=== PATIENT | male | born 1990 | race Two or more races ===

== ENCOUNTER 2021-06-29 20:11 | Emergency (ER) | payer MEDICAID ==
[~2021-06-29] VITALS: Ht 185.4 cm; Wt 113.4 kg
[2021-06-29 20:40] VITALS: BP 124/60
[2021-06-29] MEDS ORDERED: AMOXICILLIN/CLAVUL 875 MG TAB PO ONE (21:15)
[2021-06-29] MEDS ORDERED: BACITRACIN TOP OINT 1 UD PKG TOP ONE (21:30)
[2021-06-29] MEDS ORDERED: TETANUS-DIPTH-ACEL PERTUSSIS 0.5ML SYR Tdap IM ONE (21:30)
[2021-06-29] MEDS ORDERED: AMOXTAB PO (21:53)
== END 2021-06-29 22:48 | disposition home or self-care (01) ==
LOC: ER 20:11 → EDBD 20:11 → ER 22:15
DX: S61.012A Laceration without foreign body of left thumb without damage to nail, initial encounter (principal); W54.0XXA Bitten by dog, initial encounter; Y93.89 Activity, other specified; Y92.89 Other specified places as the place of occurrence of the external cause; Y99.8 Other external cause status
CPT/HCPCS: 12001; 73140

== ENCOUNTER 2021-07-15 20:14 | Emergency (ER) | payer MEDICAID ==
[~2021-07-15] VITALS: Ht 185.4 cm; Wt 115.7 kg
[2021-07-15 20:15] VITALS: BP 115/73
[2021-07-15 22:32] LABS: Basophils # (auto) 0.1 10 ^3/uL (0-0.2); Basophils % (auto) 0.8 % (0.0-2.0); Eosinophils # (auto) 0.2 10 ^3/uL (0-0.8); Eosinophils % (auto) 2.3 % (0.0-7.0); Hematocrit 45.9 % (41.0-53.0); Lymphocytes # (auto) 2.3 10 ^3/uL (0.4-5.4); Lymphocytes % (auto) 33.7 % (10.0-50.0); Mean Corpuscular Hemoglobin 29.2 pg (28.0-32.0); Mean Corpuscular Hgb Conc. 34.9 g/dL (32.0-36.0); Mean Corpuscular Volume 83.8 fL (80.0-100.0); Monocytes # (auto) 0.4 10 ^3/uL (0-1.3); Monocytes % (auto) 6.1 % (0.0-12.0); Neutrophils % (auto) 57.1 % (37.0-80.0); Nucleated Red Blood Cells % 0.1 %; Red Blood Cells 5.48 10^6/uL (4.5-5.90); Red Cell Distribution Width 13.8 % (11.8-14.3); White Blood Cell 6.9 10^3/uL (4.4-10.8)
[2021-07-15 22:50] LABS: Albumin 3.9 g/dL (3.4-5.0); BUN/Creatinine Ratio 15.8; Potassium 4.5 mmol/L (3.5-5.1)
[2021-07-15 22:53] LABS: Bilirubin, Total 0.3 mg/dL (0.2-1.0); Total Protein 7.3 g/dL (6.4-8.2)
[2021-07-15] MEDS ORDERED: AZIT250T9 PO (23:40)
== END 2021-07-15 23:31 | disposition left against medical advice (07) ==
LOC: ER 20:14
DX: R07.89 Other chest pain (principal)
CPT/HCPCS: 36415; 71046; 80053; 84484; 85025; 93005

== ENCOUNTER 2021-12-29 19:51 | Emergency (ER) | payer MEDICAID ==
[~2021-12-29] VITALS: Ht 193 cm; Wt 113.5 kg
[~2021-12-29 19:51] MED LIST: AZIT250T9 PO
[2021-12-29] MEDS ORDERED: IOHEXOL 350 MG/ML 100ML IJ ONE (20:12)
[2021-12-29 20:31] LABS: Basophils # (auto) 0 10 ^3/uL (0-0.2); Basophils % (auto) 0.3 % (0.0-2.0); Eosinophils # (auto) 0.2 10 ^3/uL (0-0.8); Eosinophils % (auto) 2.1 % (0.0-7.0); Hematocrit 45.3 % (41.0-53.0); Hemoglobin 15.3 g/dL (13.5-17.5); Lymphocytes # (auto) 1.6 10 ^3/uL (0.4-5.4); Lymphocytes % (auto) 20.7 % (10.0-50.0); Mean Corpuscular Hemoglobin 27.8 pg (28.0-32.0); Mean Corpuscular Hgb Conc. 33.6 g/dL (32.0-36.0); Mean Corpuscular Volume 82.7 fL (80.0-100.0); Monocytes # (auto) 0.6 10 ^3/uL (0-1.3); Monocytes % (auto) 8.1 % (0.0-12.0); Neutrophils # (auto) 5.2 10 ^3/uL (1.6-8.6); Neutrophils % (auto) 68.8 % (37.0-80.0); Red Blood Cells 5.48 10^6/uL (4.5-5.90); Red Cell Distribution Width 13.8 % (11.8-14.3); White Blood Cell 7.5 10^3/uL (4.4-10.8)
[2021-12-29 20:49] LABS: Albumin 3.3 g/dL (3.4-5.0); BUN/Creatinine Ratio 16.3; Calcium 8.1 mg/dL (8.5-10.1); Potassium 4.4 mmol/L (3.5-5.1)
[2021-12-29 20:52] LABS: Bilirubin, Total 0.2 mg/dL (0.2-1.0); Total Protein 7.3 g/dL (6.4-8.2)
[2021-12-30 02:15] VITALS: BP 117/75
[2021-12-30] MEDS ORDERED: CLINDAMYCIN HCL 150 MG CAP PO ONE (05:45)
[2021-12-30] MEDS ORDERED: OXYCODONE W/ ACETAMINOPHEN 5/325MG TABLET PO ONE (05:45)
== END 2021-12-30 06:56 | disposition home or self-care (01) ==
LOC: EDBD 19:51 → ER 19:51
DX: L03.312 Cellulitis of back [any part except buttock and flank] (principal); G89.18 Other acute postprocedural pain; R94.31 Abnormal electrocardiogram [ECG] [EKG]; Z20.822 Contact with and (suspected) exposure to COVID-19
CPT/HCPCS: 36415; 71045; 72132; 80053; 83605; 85025; 87426; 93005; 99285; Q9967

== ENCOUNTER 2024-09-21 01:25 | Emergency (ER) | payer MEDICAID ==
[~2024-09-21] VITALS: Ht 185.4 cm; Wt 125.9 kg
[~2024-09-21 01:25] MED LIST changes: +AZIT-43 PO; -AZIT250T9 PO
--- NOTE | 2024-09-21 01:46 | ED.PDOC ---
Back pain HPI HPI Comments 33-YEAR-OLD MALE PRESENTS TO THE ED CHIEF COMPLAINT LEFT ANKLE INJURY. PATIENT STATES AROUND 8:00 A.M. YESTERDAY HE WAS WALKING LOST HIS FOOTING AND TWISTED HIS LEFT ANKLE INWARD. COMPLAINING OF PRESSURE TYPE PAIN WORSE WITH AMBULATING SHARP IN NATURE 8/10 ON PAIN SCALE. CURRENTLY TAKING NORCO FOR CHRONIC PAIN STATES HELPED A LITTLE. DENIES NUMBNESS WEAKNESS OR ANY OTHER KNOWN INJURY. Time Seen by MD: 01:28 Primary Care Provider: KEANU STEVENS Reviewed Notes: Nurses Notes, Medications, Allergies Allergies: Coded Allergies: NO KNOWN ALLERGIES (Unverified , 06/29/21) Home Meds Active Scripts Azithromycin (Azithromycin) 250 Mg Tab, 250 MG PO DAILY, #4 TAB Prov:GUANAKITO NUNN MD 07/15/21 Information Source: Patient Past Medical History PAST MEDICAL HISTORY: DM Surgical History: Denies all surgeries Family History Family History: Reviewed,noncontributory to illness Social History Smoker: Non-Smoker Alcohol: Denies ETOH Use Drugs: Denies Drug Use Lives In: Home Constitutional: denies: chills, diaphoresis, fatigue, fever, malaise, sweats, weakness, others EENTM: denies: blurred vision, double vision, ear bleeding, ear discharge, ear drainage, ear pain, ear ringing, eye pain, eye redness, hearing loss, mouth pain, mouth swelling, nasal discharge, nose bleeding, nose congestion, nose pain, photophobia, tearing, throat pain, throat swelling, voice changes, others Respiratory: denies: cough, hemoptysis, orthopnea, SOB at rest, shortness of breath, SOB with excertion, stridor, wheezing, others Cardiovascular: denies: chest pain, dizzy spells, diaphoresis, Dyspnea on exertion, edema, irregular heart beat, left arm pain, lightheadedness, palpitations, PND, syncope, others Gastrointestinal: denies: abdomen distended, abdominal pain, blood streaked bowels, constipated, diarrhea, dysphagia, difficulty swallowing, hematemesis, melena, nausea, poor appetite, poor fluid intake, rectal bleeding, rectal pain, vomiting, others Genitourinary: denies: burning, dysuria, flank pain, frequency, hematuria, incontinence, penile discharge, penile sore, pain, testicle pain, testicle swelling, urgency, others Neurological: denies: dizziness, fainting, headache, left sided numbness, left sided weakness, numbness, paresthesia, pre-existing deficit, right sided nu mbness, right sided weakness, seizure, speech problems, tingling, tremors, weakness, others Musculoskeletal: reports: joint pain, joint swelling; denies: back pain, gout, muscle pain, muscle stiffness, neck pain, others Integumetry: denies: bruises, change in color, change in hair/nails, dryness, laceration, lesions, lumps, rash, wounds, others Allergic/Immunocompromised: denies: Difficulty Healing, Frequent Infections, Hives, Itching, others Hematologic/Lymphatic: denies: anemia, blood clots, easy bleeding, easy bruising, swollen glands, others Endocrine: denies: excessive hunger, excessive sweating, excessive thirst, excessive urination, flushing, intolerance to cold, intolerance to heat, unexplained weight gain, unexplained weight loss, others Psychiatric: denies: anxiety, bipolar disorder, depression, hopeless, panic disorder, schizophrenia, sleepless, suicidal, others Physical Exam General Appearance: No Apparent Distress, Normal HEENT: Pharynx Normal Neck: Full Range of Motion, Non-Tender Respiratory: Lungs Clear, No Respiratory Distress, Normal Breath Sounds Cardiovascular: No Murmur, Normal Peripheral Pulses, Regular Rate/Rhythm Breast Exam: Deferred Gastrointestinal: Non Tender, Soft Genitalia: Deferred Pelvic: Deferred Rectal: Deferred Extremities: Normal capillary refill, Normal inspection, Normal range of motion, Non-tender, No pedal edema Musculoskeletal : Location: Left Extremity Location: Ankle (LATERAL ASPECT NOTED TRACE EDEMA STRENGTH SENSORY MOTION INTACT POSITIVE PEDAL PULSE NO NOTED ABRASIONS OR LACERATIONS.) Apperance: Normal Neurologic: Alert, No Motor Deficits, Normal Affect, Normal Mood, No Sensory Deficits Cerebellar Function: Normal Reflexes: Normal Skin: Dry, Normal Color, Warm Lymphatic: No Adenopathy Was a procedure done? Was a procedure done?: No Back Pain Differential Dx Differential Diagnosis: Fracture, Musculoskeletal Pain X-Ray, Labs, Meds, VS Vital Signs Date Time Temp Pulse Resp B/P (MAP) Pulse Ox O2 Delivery O2 Flow Rate FiO2 09/21/24 01:48 98.0 110 18 115/72 (86) 97 98.0 X-Ray, Labs, Meds, VS Comment PATIENT GIVEN TORADOL 60 MG IM REPORTS IMPROVEMENT IN PAIN AND FUNCTION REQUESTING DISCHARGE AT THIS TIME. ANKLE X-RAY SHOWS NO ACUTE FRACTURES OSSEOUS LESIONS OR DISLOCATIONS. LIKELY LEFT ANKLE SPRAIN. PATIENT PLACED IN STIRRUP SPLINT AND CRUTCHES. ADVISED ON RICE. SCRIPT TRIAL OF IBUPROFEN ADVISED TAKE MEDICATIONS PRESCRIBED SIDE EFFECTS DISCUSSED. HE IS TO FOLLOW UP WITH HIS PCP IN 2-3 DAYS NECESSARY CONSIDER FURTHER IMAGING SUCH REPEAT X-RAY OR MRI IF SYMPTOMS PERSIST. ER RETURN PRECAUTIONS GIVEN PATIENT INDICATES UNDERSTANDING AND AGREES WITH DISCHARGE PLAN OF CARE. Time of 1ST Reevaluation: 01:43 Reevaluation 1ST: Unchanged Time of 2ND Reevaluation: 03:06 Reevaluation 2ND: Improved Patient Education/Counseling: Diagnosis, Treatment, Prognosis, Need For Follow Up Family Education/Counseling: Diagnosis, Treatment, Prognosis, Need For Follow Up SEPSIS Sepsis Screen Physician Orders L Ankle 3 View (09/21/24 01:46) Apply Ice To Affected Area (09/21/24 01:48) Vital Signs Date Time Temp Pulse Resp B/P (MAP) Pulse Ox O2 Delivery O2 Flow Rate FiO2 09/21/24 01:48 98.0 110 18 115/72 (86) 97 98.0 Departure 1 Departure Time of Disposition: 03:05 Impression: Primary Impression: Left ankle sprain Qualified Codes: S93.402A - Sprain of unspecified ligament of left ankle, initial encounter Disposition: HOME / SELF CARE / HOMELESS Condition: Stable e-Prescriptions Ibuprofen (Ibuprofen) 600 Mg Tab 600 MG PO TID PRN for 6 Days, #18 TAB Prov: AJ GARCIA 09/21/24 Discharged With: Self Critical Care Note Critical Care Time?: No Stability Stability form required: No AJ GARCIA Sep 21, 2024 01:46
[2024-09-21 01:48] VITALS: RESP 18
--- NOTE | 2024-09-21 03:01 | DVH ---
Examination: LANKELIZA Clinical Indication: Pain Comparison: None. Technique: two views Findings: There is no evidence of acute fracture, dislocation, or osseous destructive lesion. The talar dome is unremarkable. The ankle mortise is intact. The soft tissues appear unremarkable. Impression: No acute osseous or soft tissue abnormality. Electronically Signed 09/21/2024 02:59 Mark Anthony Quintanilla
[2024-09-21] MEDS ORDERED: IBUP-1454 PO (03:06)
[2024-09-21 04:22] VITALS: BP 124/79; PULSE 85; TEMP 98.1
[2024-09-21] MEDS: KETOROLAC TROMETH 60MG/2ML VIAL IM ONE (04:24)
[2024-09-21 04:30] VITALS: O2SAT 99
== END 2024-09-21 05:00 | disposition home or self-care (01) ==
LOC: ER 01:25
DX: S93.402A Sprain of unspecified ligament of left ankle, initial encounter (principal); E11.9 Type 2 diabetes mellitus without complications; X50.1XXA Overexertion from prolonged static or awkward postures, initial encounter; Y93.01 Activity, walking, marching and hiking; Y92.89 Other specified places as the place of occurrence of the external cause; Y99.8 Other external cause status
CPT/HCPCS: 29515; 73610; 96372; 99283; J1885